=== PATIENT | male | born 1995 | race Caucasian/White ===

== ENCOUNTER → 2017-10-12 | Outpatient (CLI) | payer BC ==
--- NOTE | 2017-10-12 16:37 | Diagnostic Imaging Report ---
PROCEDURE: CT abdomen and pelvis without contrast. TECHNIQUE: Multiple contiguous axial images were obtained through the abdomen and pelvis without the use of intravenous contrast. INDICATION: Abdominal pain. FINDINGS: The lung bases appear clear. The liver, the spleen, the adrenal glands, the pancreas and gallbladder appear unremarkable for unenhanced exam. There is a hypodense lesion seen in the lower pole of the left kidney measuring 0.9 cm in size. This is probably a cyst. There is no hydronephrosis. No kidney stones. There is an indeterminate calcification measuring 9 mm seen in the right side of the pelvis. It is perhaps along one of the vessels suggestive of phlebolith. This does not appear to be a fecalith. The appendix is not clearly identified. No fluid collection is seen in the abdomen or pelvis. No bowel obstruction. The mesenteric lymph nodes are minimally prominent. The abdominal aorta is normal in caliber. No para-aortic significantly enlarged lymph node is seen. Osseous structures demonstrate no significant degenerative changes. IMPRESSION: 1. Indeterminate 9 mm calcification in the right side of the pelvis could be a phlebolith. This does not appears to be a ureteric stone although the right ureter is not clearly identified at this level. No hydronephrosis. 2. The appendix is not clearly identified on this exam. Dictated by: Dictated on workstation # [id number]
== END ==
LOC: RAD 14:46
PROVIDERS: ATTEND Urology
DX: R93.5 Abnormal findings on diagnostic imaging of other abdominal regions, including retroperitoneum (principal); R10.9 Unspecified abdominal pain; N50.819 Testicular pain, unspecified
CPT/HCPCS: 74176

== ENCOUNTER 2017-10-15 14:45 | Emergency (ER) | payer BC ==
[~2017-10-15] VITALS: Ht 172.7 cm; Wt 63.5 kg
--- OUTSIDE RECORDS SUMMARY | 2017-10-15 14:51 | XMS REPORT | Continuity of Care Document ---
Author Author [facility] Address Unknown Phone Unavailable Allergies There is no data. Medications There is no data. Problems Date Dx Coded Attending Type Code Diagnosis Diagnosed By 01/31/2014 VIPIN SINGH MD V03.89 MENINGOCOCCAL DX Procedures There is no data. Results There is no data. Encounters ACCT No. Visit Date/Time Discharge Status Pt. Type Provider Facility Loc./Unit Complaint [id number] 01/31/2014 14:55:00 01/31/2014 23:59:59 [facility] Outpatient VIPIN SINGH MD
--- NOTE | 2017-10-15 15:20 | ED GU-Male ---
General Stated Complaint: STOMACH,TESTICLE PAIN Source: patient Exam Limitations: no limitations History of Present Illness Time seen by provider: 15:17 Initial Comments To ER with lower abdominal and testicular pain. This pain has been present for about a month. It affects both of his testicles but left greater than right. No penile discharge or lesions. He has seen his primary care doctor Cruzito in [place] as well as Dr. Arrington surgeon and Dr. Townsend urology. He has had scrotal ultrasound and CT scan of the abdomen and pelvis without findings. Today the pain is much worse. Timing/Duration: constant Severity/Quality: moderate Location: suprapubic, urethral, scrotal Activities at Onset: none Prior Genitourinary Problems: none Associated Symptoms: denies symptoms Allergies and Home Medications Allergies Coded Allergies: No Known Drug Allergies (Unverified , 10/15/17) Constitutional: see HPI EENTM: see HPI Respiratory: no symptoms reported Cardiovascular: no symptoms reported Genitourinary: no symptoms reported Musculoskeletal: no symptoms reported Skin: no symptoms reported Psychiatric/Neurological: No Symptoms Reported Endocrine: No Symptoms Reported Hematologic/Lymphatic: No Symptoms Reported Past Zybdgmm-Ymulnx-Dyjfop Hx Patient Social History Recent Foreign Travel: No Contact w/Someone Who Travel: No Physical Exam Vital Signs Vital Sign - Last 12Hours 10/15/17 15:22 Temp 98.1 Pulse 87 Resp 20 B/P (MAP) 145/79 (101) Pulse Ox 99 Capillary Refill : General Appearance: WD/WN, no apparent distress HEENT: PERRL/EOMI, normal ENT inspection Neck: non-tender, full range of motion Respiratory: no respiratory distress, no accessory muscle use Gastrointestinal: normal bowel sounds, non tender Extremities: normal range of motion, non-tender Neurologic/Psychiatric: alert, normal mood/affect, oriented x 3 Skin: normal color, warm/dry Progress/Results/Core Measures Suspected Sepsis SIRS Temperature: Pulse: Respiratory Rate: Laboratory Tests 10/15/17 15:17: White Blood Count 8.0 Blood Pressure / Mean: Laboratory Tests 10/15/17 15:17: Creatinine 0.84, Platelet Count 189 Results/Orders Lab Results Laboratory Tests Test 10/15/17 15:17 10/15/17 16:30 Range/Units White Blood Count 8.0 4.3-11.0 10^3/uL Red Blood Count 4.55 4.35-5.85 10^6/uL Hemoglobin 14.9 13.3-17.7 G/DL Hematocrit 43 40-54 % Mean Corpuscular Volume 93 80-99 FL Mean Corpuscular Hemoglobin 33 25-34 PG Mean Corpuscular Hemoglobin Concent 35 32-36 G/DL Red Cell Distribution Width 11.7 10.0-14.5 % Platelet Count 189 130-400 10^3/uL Mean Platelet Volume 10.2 7.4-10.4 FL Neutrophils (%) (Auto) 58 42-75 % Lymphocytes (%) (Auto) 32 12-44 % Monocytes (%) (Auto) 7 0-12 % Eosinophils (%) (Auto) 2 0-10 % Basophils (%) (Auto) 1 0-10 % Neutrophils # (Auto) 4.7 1.8-7.8 X 10^3 Lymphocytes # (Auto) 2.6 1.0-4.0 X 10^3 Monocytes # (Auto) 0.6 0.0-1.0 X 10^3 Eosinophils # (Auto) 0.2 0.0-0.3 10^3/uL Basophils # (Auto) 0.0 0.0-0.1 10^3/uL Sodium Level 140 135-145 MMOL/L Potassium Level 4.0 3.6-5.0 MMOL/L Chloride Level 106 98-107 MMOL/L Carbon Dioxide Level 21 21-32 MMOL/L Anion Gap 13 5-14 MMOL/L Blood Urea Nitrogen 15 7-18 MG/DL Creatinine 0.84 0.60-1.30 MG/DL Estimat Glomerular Filtration Rate > 60 BUN/Creatinine Ratio 18 Glucose Level 91 70-105 MG/DL Calcium Level 9.4 8.5-10.1 MG/DL Urine Color YELLOW Urine Clarity CLEAR Urine pH 7 5-9 Urine Specific [place] 1.010 L 1.016-1.022 Urine Protein 1+ H NEGATIVE Urine Glucose (UA) NEGATIVE NEGATIVE Urine Ketones 3+ H NEGATIVE Urine Nitrite NEGATIVE NEGATIVE Urine Bilirubin NEGATIVE NEGATIVE Urine Urobilinogen NORMAL NORMAL MG/DL Urine Leukocyte Esterase 1+ H NEGATIVE Urine RBC (Auto) 3+ H NEGATIVE Urine RBC 10-25 H /HPF Urine WBC RARE /HPF Urine Squamous Epithelial Cells RARE /HPF Urine Crystals NONE /LPF Urine Bacteria NEGATIVE /HPF Urine Casts NONE /LPF Urine Mucus SMALL H /LPF Urine Culture Indicated NO My Orders Orders - MILAGROS ISSA APRN Saline Lock/Iv-Start (10/15/17 15:07) Ua Culture If Indicated (10/15/17 15:07) Us Scrotum (Testicle) [id number] (10/15/17 15:07) Cbc With Automated Diff (10/15/17 15:07) Basic Metabolic Panel (10/15/17 15:07) Chlamydia Dna (10/15/17 15:15) Neis Chintan Dna Urine Test (10/15/17 15:15) Ketorolac Injection (Toradol Injection) (10/15/17 15:30) Ct Abdomen/Pelvis W (10/15/17 15:28) Iohexol Injection (Omnipaque 350 Mg/Ml 1 (10/15/17 15:45) Ns (Ivpb) (Sodium Chloride 0.9% Ivpb Bag (10/15/17 15:45) Pharmacy Communication (Pharmacy Communi (10/15/17 15:32) Fentanyl Injection (Sublimaze Injection (10/15/17 16:30) Medications Given in ED Current Medications Medications Dose Ordered Sig/Sloane Route Start Time Stop Time Status Last Admin Dose Admin Fentanyl Citrate 50 mcg ONCE ONCE IVP 10/15/17 16:30 10/15/17 16:31 DC 10/15/17 17:14 50 MCG Iohexol 100 ml ONCE ONCE IV 10/15/17 15:45 10/15/17 15:46 DC 10/15/17 15:59 100 ML Ketorolac Tromethamine 30 mg ONCE ONCE IVP 10/15/17 15:30 10/15/17 15:31 DC 10/15/17 15:33 30 MG Sodium Chloride 100 ml ONCE ONCE IV 10/15/17 15:45 10/15/17 15:46 DC 10/15/17 15:59 80 ML Vital Signs/I&O Vital Sign - Last 12Hours 10/15/17 15:22 Temp 98.1 Pulse 87 Resp 20 B/P (MAP) 145/79 (101) Pulse Ox 99 Capillary Refill : Diagnostic Imaging Diagonstic Imaging: Xray Plain Films/CT/US/NM/MRI: elbow Comments NAME: PINA CALIXTO MED REC#: [id number] PT STATUS: REG ER : 1995 PHYSICIAN: MILAGROS ISSA APRN ADMIT DATE: 10/15/17/ER Draft Date of Exam:10/15/17 US SCROTUM (Testicle) [id number] EXAMINATION: Scrotal ultrasound. INDICATION: Bilateral testicular pain. FINDINGS: The right testicle is 4.4 x 2.2 x 3.0 cm. Phe left testicle is 4.5 x 2.2 x 2.9 cm. No solid mass is identified in either testicle. Arterial waveforms are demonstrated in both testicles. There is no hydrocele. There is bilateral varicocele of mild degree with the veins measuring 2-3 mm, more on the left side. IMPRESSION: Bilateral mild varicocele slightly more prominent on the left. Dictated on workstation # [id number] Dict: 10/15/171615 Trans: 10/15/17 1630 [id number] Interpreted by: LEONEL FERGUSON MD Electronically signed by: NAME: PINA CALIXTO [facility] REC#: [id number] PT STATUS: REG ER : 1995 PHYSICIAN: MILAGROS ISSA APRN ADMIT DATE: 10/15/17/ER Signed Date of Exam:10/15/17 CT ABDOMEN/PELVIS W PROCEDURE: CT abdomen and pelvis with contrast. TECHNIQUE: Multiple contiguous axial images were obtained through the abdomen and pelvis after administration of intravenous contrast. INDICATION: Left flank pain. FINDINGS: Lung bases are clear. Liver appears normal. Gallbladder is present. Pancreas is normal. Spleen is not enlarged. Adrenals and kidneys are normal. Renal veins are patent. There are no inguinal hernias. Bowel gas pattern is normal. Colon is normal. Urinary bladder is unremarkable. IMPRESSION: Negative CT abdomen and pelvis. Dictated by: Dictated on workstation # [id number] Dict: 10/15/171610 Trans: 10/15/17 1628 [id number] Interpreted by: EUSEBIO DUNNE MD Electronically signed by: EUSEBIO DUNNE MD 10/15/17 1629 Departure Communication (Admissions) Progress Notes I did discuss with Dr. Townsend. He recommends Bactrim DS antibiotics and he will see the patient tomorrow at 1030 a.m. Impression Impression: Primary Impression: Bilateral varicoceles Disposition: 01 HOME, SELF-CARE Condition: Stable Departure-Patient Inst. Decision time for Depature: 17:36 Referrals: MEAGHAN AMEZQUITA MD (PCP/Family) Primary Care Physician SUE TOWNSEND MD Patient Instructions: Varicocele Add. Discharge Instructions: 1. Follow up with Dr. Townsend. He will see you in the office tomorrow at 1030 a.m. Take the antibiotics as directed in addition to the pain medication. The antibiotics are for a possible diagnosis of epididymitis which is an infectious cause of testicular pain Scripts Hydrocodone/Acetaminophen ([place] 5-325 Tablet) 1 Each Tablet 1 EACH PO Q4H Y for PAIN-MODERATE TO SEVERE, #14 TAB Prov: MILAGROS ISSA APRN 10/15/17 Sulfamethoxazole/Trimethoprim (Bactrim Ds Tablet) 1 Each Tablet 1 EACH PO BID, #14 TAB Prov: MILAGROS ISSA [employer]TER [employer]XOP[employer]ON[employer] 10/15/17 Work/School Note: Work Release Form Date Seen in the Emergency Department: Oct 15, 2017 Return to Work: Oct 17, 2017 Copy Copies To 1: MEAGHAN AMEZQUITA MD; SUE TOWNSEND MD, PETER J MOUNTER SAXOPHONES Oct 15, 2017 15:20
[2017-10-15 15:28] LABS: BASOPHILS % (AUTO) 1 % (0-10); EOSINOPHILS # (AUTO) 0.2 10^3/uL (0.0-0.3); EOSINOPHILS % (AUTO) 2 % (0-10); LYMPHOCYTES # (AUTO) 2.6 X 10^3 (1.0-4.0); LYMPHOCYTES % (AUTO) 32 % (12-44); MEAN CORPUSCULAR HEMOGLOBIN 33 PG (25-34); MEAN CORPUSCULAR HGB CONC 35 G/DL (32-36); MEAN CORPUSCULAR VOLUME 93 FL (80-99); MEAN PLATELET VOLUME 10.2 FL (7.4-10.4); MONOCYTES # (AUTO) 0.6 X 10^3 (0.0-1.0); MONOCYTES % (AUTO) 7 % (0-12); NEUTROPHILS # (AUTO) 4.7 X 10^3 (1.8-7.8); NEUTROPHILS % (AUTO) 58 % (42-75); PLATELET COUNT 189 10^3/uL (130-400); RED BLOOD COUNT 4.55 10^6/uL (4.35-5.85); RED CELL DISTRIBUTION WIDTH 11.7 % (10.0-14.5)
[2017-10-15] MEDS ORDERED: KETOROLAC 30 MG/ML VIAL IVP ONE (15:30)
[2017-10-15] MEDS ORDERED: IOHEXOL 350 MG/ML 100 ML (OMNIPAQUE 350) VIAL IV ONE (15:45)
[2017-10-15] MEDS ORDERED: NS 100 ML (IVPB) BAG IV ONE (15:45)
[2017-10-15 15:52] LABS: ANION GAP 13 MMOL/L (5-14); BLOOD UREA NITROGEN 15 MG/DL (7-18); BUN/CREATININE RATIO 18; CALCIUM 9.4 MG/DL (8.5-10.1); CARBON DIOXIDE 21 MMOL/L (21-32); CHLORIDE 106 MMOL/L (98-107); CREATININE SERUM 0.84 MG/DL (0.60-1.30); GFR ESTIMATED > 60; GLUCOSE 91 MG/DL (70-105); SODIUM 140 MMOL/L (135-145)
--- NOTE | 2017-10-15 16:15 | Diagnostic Imaging Report ---
PROCEDURE: CT abdomen and pelvis with contrast. TECHNIQUE: Multiple contiguous axial images were obtained through the abdomen and pelvis after administration of intravenous contrast. INDICATION: Left flank pain. FINDINGS: Lung bases are clear. Liver appears normal. Gallbladder is present. Pancreas is normal. Spleen is not enlarged. Adrenals and kidneys are normal. Renal veins are patent. There are no inguinal hernias. Bowel gas pattern is normal. Colon is normal. Urinary bladder is unremarkable. IMPRESSION: Negative CT abdomen and pelvis. Dictated by: Dictated on workstation # [id number]
[2017-10-15] MEDS ORDERED: fentaNYL INJECTION 100 MCG/2 ML AMP IVP ONE (16:30)
--- NOTE | 2017-10-15 16:31 | Diagnostic Imaging Report ---
EXAMINATION: Scrotal ultrasound. INDICATION: Bilateral testicular pain. FINDINGS: The right testicle is 4.4 x 2.2 x 3.0 cm. Phe left testicle is 4.5 x 2.2 x 2.9 cm. No solid mass is identified in either testicle. Arterial waveforms are demonstrated in both testicles. There is no hydrocele. There is bilateral varicocele of mild degree with the veins measuring 2-3 mm, more on the left side. IMPRESSION: Bilateral mild varicocele slightly more prominent on the left. Dictated by: Dictated on workstation # [id number]
[2017-10-15 17:16] LABS: BILIRUBIN,URINE NEGATIVE (NEGATIVE); KETONES,URINE 3+ (NEGATIVE); LEUKOCYTE ESTERASE ,URINE 1+ (NEGATIVE); NITRITE,URINE NEGATIVE (NEGATIVE); PH,URINE 7 (5-9); PROTEIN,URINE 1+ (NEGATIVE); UROBILINOGEN,URINE NORMAL (NORMAL)
[2017-10-15 17:31] LABS: SQUAMOUS EPITHELIAL CELL,UR RARE /HPF; WBC,URINE RARE /HPF
[2017-10-15] MEDS ORDERED: HYDR-757 PO (17:38)
[2017-10-15] MEDS ORDERED: SULF1TAB35 PO (17:38)
[2017-10-15 17:46] VITALS: BP 130/72
[2017-10-20 06:46] LABS: NEISSERIA GONORRHEA DNA URINE Not Detected (Not Detected)
[2017-10-21 06:47] LABS: CHLAMYDIA DNA URINE Not Detected (Not Detected)
== END 2017-10-15 17:46 | disposition home or self-care (01) ==
LOC: EDUNIT# 14:45 → ER 14:47
DX: I86.1 Scrotal varices (principal)
CPT/HCPCS: 36415; 74177; 76870; 80048; 81000; 85025; 87088; 87491; 87591

== ENCOUNTER 2020-12-25 13:51 | Emergency (ER) | payer BC ==
[~2020-12-25] VITALS: Ht 172.7 cm; Wt 72.0 kg
[~2020-12-25 13:51] MED LIST: HYDR-4226 PO; SULF1TAB35 PO
--- NOTE | 2020-12-25 14:28 | ED Cough/URI ---
General Chief Complaint: Respiratory Problems Stated Complaint: SOA DIARRHEA Nursing Triage Note: Pt states shortness of breath, left lower abd pain and loose stools for 5 days, worsening today. Sepsis Screen: No Definite Risk Source: patient Exam Limitations: no limitations History of Present Illness Date Seen by Provider: Dec 25, 2020 Time Seen by Provider: 14:49 Initial Comments To ER with c/o SOB, LLQ pain, loose stools x5 days. Timing/Duration: week, getting worse Severity/Quality: dry cough Associated Symptoms: denies symptoms Allergies and Home Medications Allergies Coded Allergies: No Known Drug Allergies (Unverified , 10/15/17) Home Medications Hydrocodone/Acetaminophen 1 Each Tablet, 1 EACH PO Q4H PRN for PAIN-MODERATE TO SEVERE Prescribed by: MILAGROS ISSA on 10/15/17 1738 Sulfamethoxazole/Trimethoprim 1 Each Tablet, 1 EACH PO BID Prescribed by: MILAGROS ISSA on 10/15/17 1738 Patient Home Medication List Home Medication List Reviewed: Yes Review of Systems Review of Systems Constitutional: chills EENTM: see HPI Respiratory: see HPI, cough, short of breath Cardiovascular: no symptoms reported Genitourinary: no symptoms reported Musculoskeletal: no symptoms reported Skin: no symptoms reported Psychiatric/Neurological: No Symptoms Reported Hematologic/Lymphatic: No Symptoms Reported Immunological/Allergic: no symptoms reported Past Wldzvqp-Wuyqus-Hhwtiq Hx Patient Social History Recent Infectious Disease Expo: No Seasonal Allergies Seasonal Allergies: No Past Medical History Surgeries: No Respiratory: No Cardiac: No Neurological: No Genitourinary: No Gastrointestinal: No Musculoskeletal: No Endocrine: No HEENT: No Cancer: No Psychosocial: No Integumentary: No Blood Disorders: No Adverse Reaction/Blood Tranf: No Physical Exam Vital Signs - First Documented 12/25/20 14:14 Temp 36.6 Pulse 103 Resp 32 B/P (MAP) 151/94 (113) Pulse Ox 99 O2 Delivery Room Air Capillary Refill : Greater Than 3 Seconds Height: 5'8.00" Weight: 140lbs. oz. 63.650455zr; 24.00 BMI Method:Stated General Appearance: WD/WN, no apparent distress Eyes: Bilateral Eye Normal Inspection, Bilateral Eye PERRL, Bilateral Eye EOMI HEENT: PERRL/EOMI, normal ENT inspection Respiratory: normal breath sounds, no respiratory distress, no accessory muscle use Gastrointestinal: normal bowel sounds, non tender, soft Extremities: normal range of motion, non-tender Neurologic/Psychiatric: alert, normal mood/affect, oriented x 3 Skin: normal color, warm/dry Progress/Results/Core Measures Suspected Sepsis Recent Fever Within 48 Hours: No Infection Criteria Present: None New/Unexplained Altered Menta: No Sepsis Screen: No Definite Risk SIRS Temperature: Pulse: 103 Respiratory Rate: 32 Laboratory Tests 12/25/20 14:20: White Blood Count 7.7 Blood Pressure 151 /94 Mean: 113 Laboratory Tests 12/25/20 14:20: Creatinine 1.16, Platelet Count 231, Total Bilirubin 0.8 Results/Orders Lab Results Laboratory Tests Test 12/25/20 14:20 Range/Units White Blood Count 7.7 4.3-11.0 10^3/uL Red Blood Count 5.13 4.30-5.52 10^6/uL Hemoglobin 16.1 13.3-17.7 g/dL Hematocrit 45 40-54 % Mean Corpuscular Volume 88 80-99 fL Mean Corpuscular Hemoglobin 31 25-34 pg Mean Corpuscular Hemoglobin Concent 36 32-36 g/dL Red Cell Distribution Width 11.4 10.0-14.5 % Platelet Count 231 130-400 10^3/uL Mean Platelet Volume 10.1 9.0-12.2 fL Immature Granulocyte % (Auto) 0 % Neutrophils (%) (Auto) 54 42-75 % Lymphocytes (%) (Auto) 37 12-44 % Monocytes (%) (Auto) 8 0-12 % Eosinophils (%) (Auto) 1 0-10 % Basophils (%) (Auto) 0 0-10 % Neutrophils # (Auto) 4.2 1.8-7.8 10^3/uL Lymphocytes # (Auto) 2.8 1.0-4.0 10^3/uL Monocytes # (Auto) 0.6 0.0-1.0 10^3/uL Eosinophils # (Auto) 0.1 0.0-0.3 10^3/uL Basophils # (Auto) 0.0 0.0-0.1 10^3/uL Immature Granulocyte # (Auto) 0.0 0.0-0.1 10^3/uL D-Dimer < 0.27 0.00-0.49 UG/ML Sodium Level 138 135-145 MMOL/L Potassium Level 3.9 3.6-5.0 MMOL/L Chloride Level 106 98-107 MMOL/L Carbon Dioxide Level 20 L 21-32 MMOL/L Anion Gap 12 5-14 MMOL/L Blood Urea Nitrogen 11 7-18 MG/DL Creatinine 1.16 0.60-1.30 MG/DL Estimat Glomerular Filtration Rate > 60 BUN/Creatinine Ratio 9 Glucose Level 114 H 70-105 MG/DL Calcium Level 9.7 8.5-10.1 MG/DL Corrected Calcium 8.5-10.1 MG/DL Total Bilirubin 0.8 0.1-1.0 MG/DL Aspartate Amino Transf (AST/SGOT) 22 5-34 U/L Alanine Aminotransferase (ALT/SGPT) 17 0-55 U/L Alkaline Phosphatase 51 40-136 U/L C-Reactive Protein High Sensitivity 0.05 0.00-0.50 MG/DL Total Protein 8.1 6.4-8.2 GM/DL Albumin 5.1 H 3.2-4.5 GM/DL Coronavirus 2019 ([facility]) Positive H Negative Micro Results Microbiology 12/25/20 Influenza Types A,B Antigen ([facility]) - Final, Complete My Orders Orders - MILAGROS ISSA APRN Covid 19 Inhouse Test (12/25/20 14:17) Influenza A And B Antigens (12/25/20 14:17) Chest 1 View, Ap/Pa Only (12/25/20 14:19) Cbc With Automated Diff (12/25/20 14:20) Hs C Reactive Protein (12/25/20 14:20) Comprehensive Metabolic Panel (12/25/20 14:20) Fibrin Degradation Products (12/25/20 14:20) Lactated Ringers (Lr 1000 Ml Iv Solution (12/25/20 14:30) Ketorolac Injection (Toradol Injection) (12/25/20 14:30) Vital Signs/I&O 12/25/20 12/25/20 14:14 15:59 Temp 36.6 36.6 Pulse 103 81 Resp 32 18 B/P (MAP) 151/94 (113) 128/67 (113) Pulse Ox 99 98 O2 Delivery Room Air Capillary Refill : Greater Than 3 Seconds Blood Pressure Mean: 113 Departure Impression Primary Impression: COVID-19 Disposition: 01 HOME, SELF-CARE Condition: Stable Departure-Patient Inst. Decision time for Depature: 14:50 Referrals: MEAGHAN AMEZQUITA MD (PCP/Family) Primary Care Physician Patient Instructions: Coronavirus Disease 2019 (COVID-19) (DC) MILAGROS ISSA APRN Dec 25, 2020 14:28
[2020-12-25] MEDS ORDERED: KETOROLAC 30 MG/ML VIAL IVP ONE (14:30)
[2020-12-25] MEDS ORDERED: LACTATED RINGERS 1,000 ML IV SCH (14:30)
[2020-12-25 14:38] LABS: BASOPHILS % (AUTO) 0 % (0-10); EOSINOPHILS # (AUTO) 0.1 10^3/uL (0.0-0.3); EOSINOPHILS % (AUTO) 1 % (0-10); HEMATOCRIT 45 % (40-54); HEMOGLOBIN 16.1 g/dL (13.3-17.7); LYMPHOCYTES # (AUTO) 2.8 10^3/uL (1.0-4.0); LYMPHOCYTES % (AUTO) 37 % (12-44); MEAN CORPUSCULAR HEMOGLOBIN 31 pg (25-34); MEAN CORPUSCULAR HGB CONC 36 g/dL (32-36); MEAN CORPUSCULAR VOLUME 88 fL (80-99); MEAN PLATELET VOLUME 10.1 fL (9.0-12.2); MONOCYTES # (AUTO) 0.6 10^3/uL (0.0-1.0); MONOCYTES % (AUTO) 8 % (0-12); NEUTROPHILS # (AUTO) 4.2 10^3/uL (1.8-7.8); NEUTROPHILS % (AUTO) 54 % (42-75); PLATELET COUNT 231 10^3/uL (130-400); WHITE BLOOD COUNT 7.7 10^3/uL (4.3-11.0)
--- NOTE | 2020-12-25 14:41 | Diagnostic Imaging Report ---
Indication: Dyspnea COMPARISON: No previous study is available for comparison at this time. FINDINGS: Heart size and pulmonary vasculature are within normal limits, and the lungs are clear, bilaterally. There is probable pectus excavatum. IMPRESSION: Unremarkable chest. Dictated by: Dictated on workstation # [id number]
[2020-12-25 14:43] LABS: ALBUMIN 5.1 GM/DL (3.2-4.5); CHLORIDE 106 MMOL/L (98-107); POTASSIUM 3.9 MMOL/L (3.6-5.0); SODIUM 138 MMOL/L (135-145)
[2020-12-25 14:44] LABS: CALCIUM 9.7 MG/DL (8.5-10.1)
[2020-12-25 14:46] LABS: GLUCOSE 114 MG/DL (70-105); TOTAL PROTEIN 8.1 GM/DL (6.4-8.2)
[2020-12-25 14:47] LABS: BILIRUBIN,TOTAL 0.8 MG/DL (0.1-1.0); CARBON DIOXIDE 20 MMOL/L (21-32)
[2020-12-25 14:49] LABS: ALKALINE PHOSPHATASE 51 U/L (40-136); CREATININE SERUM 1.16 MG/DL (0.60-1.30); GFR ESTIMATED > 60
[2020-12-25 14:51] LABS: BUN/CREATININE RATIO 9
[2020-12-25 14:52] LABS: ALANINE AMINOTRANSFERASE 17 U/L (0-55)
[2020-12-25 15:59] VITALS: BP 128/67
== END 2020-12-25 16:02 | disposition home or self-care (01) ==
LOC: EDUNIT# 13:51 → ER 13:56
DX: U07.1 COVID-19 (principal)
CPT/HCPCS: 71045; 80053; 85025; 85379; 86141; 87804; U0002; 36415; 87635

== ENCOUNTER 2020-12-26 19:43 | Emergency (ER) | payer BC ==
[2020-12-26] MEDS ORDERED: morphine INJ 10 MG/ML 1ML (SYR OR VIAL) IVP STA ×2 (20:08→21:10)
--- NOTE | 2020-12-26 20:14 | ED Abdominal Pain ---
General Stated Complaint: COVID POSITIVE / STOMACH PAIN Source of Information: Patient Exam Limitations: No Limitations History of Present Illness Date Seen by Provider: Dec 26, 2020 Time Seen by Provider: 20:00 Initial Comments Markel is a 25-year-old male who presents to the emergency room by POV this evening with a chief complaint of left flank pain. Patient states pain started suddenly approximately 45 minutes prior to arrival. He was riding in a car at the onset of pain. States that the pain is sharp and stabbing. He states that he had similar pain about 2 days ago but it was not quite as severe. Patient states that he had a little bit of urinary hesitancy. He has been recently treated over the past 2 weeks for prostatitis but he cannot recall the name of the antibiotic he is on. He has suffered with left testicular pain for about a year with no etiology. He states he is having some testicular pain this evening. Last bowel movement was this morning and normal per him. No recent fevers or chills. He was incidentally diagnosed with Covid yesterday at this facility. No productive cough. No vomiting since the onset of this pain. No burning with urination. No black or bloody stools. All other review of systems reviewed and negative except as stated. Timing/Duration: 1 Hour Severity/Quality: Severe, Sharp, Stabbing Location: LLQ, Flank (Left flank) Radiation: Back, Groin Activities at Onset: None Associated Symptoms: Back Pain (Left flank) Allergies and Home Medications Allergies Coded Allergies: No Known Drug Allergies (Unverified , 10/15/17) Home Medications Hydrocodone/Acetaminophen 1 Each Tablet, 1 EACH PO Q4H PRN for PAIN-MODERATE TO SEVERE Prescribed by: MILAGROS ISSA on 10/15/17 1738 Sulfamethoxazole/Trimethoprim 1 Each Tablet, 1 EACH PO BID Prescribed by: MILAGROS ISSA on 10/15/17 1738 Patient Home Medication List Home Medication List Reviewed: Yes Review of Systems Review of Systems Constitutional: see HPI EENTM: No Symptoms Reported Respiratory: No Symptoms Reported Cardiovascular: No Symptoms Reported Gastrointestinal: Abdominal Pain Genitourinary: Other (Urinary hesitancy) Musculoskeletal: other (Flank pain back pain) Skin: no symptoms reported Psychiatric/Neurological: Anxiety All Other Systems Reviewed Negative Unless Noted: Yes Past Yhckjmh-Tudasb-Wqgptr Hx Seasonal Allergies Seasonal Allergies: No Past Medical History Surgeries: No Respiratory: No Cardiac: No Neurological: No Genitourinary: No Gastrointestinal: No Musculoskeletal: No Endocrine: No HEENT: No Cancer: No Psychosocial: No Integumentary: No Blood Disorders: No Adverse Reaction/Blood Tranf: No Physical Exam Vital Signs Vital Signs - First Documented 12/26/20 20:00 Temp 36.9 Pulse 130 Resp 30 B/P (MAP) 158/101 (120) Pulse Ox 100 O2 Delivery Room Air Capillary Refill : Height/Weight/BMI Height: 5'8.00" Weight: 140lbs. oz. [id number]; 24.00 BMI Method:Stated General Appearance: WD/WN, moderate distress HEENT: normal ENT inspection Neck: full range of motion Respiratory: lungs clear, normal breath sounds, no respiratory distress Cardiovascular: regular rate, rhythm, tachycardia Gastrointestinal: soft, tenderness (Mild tenderness in the left flank and left lower quadrant without rebound or guarding) Extremities: non-tender, normal inspection, normal capillary refill Back: normal inspection, CVA tenderness (L) Male: normal genitalia; No inguinal tenderness; testicular tenderness (Very minimal left-sided testicular tenderness, no swelling no high riding testicle) Neurologic/Psychiatric: alert, normal mood/affect, oriented x 3 Skin: normal color, warm/dry Progress/Results/Core Measures Results/Orders Lab Results Laboratory Tests Test 12/26/20 20:11 12/26/20 20:50 Range/Units White Blood Count 10.0 4.3-11.0 10^3/uL Red Blood Count 4.90 4.30-5.52 10^6/uL Hemoglobin 15.3 13.3-17.7 g/dL Hematocrit 44 40-54 % Mean Corpuscular Volume 89 80-99 fL Mean Corpuscular Hemoglobin 31 25-34 pg Mean Corpuscular Hemoglobin Concent 35 32-36 g/dL Red Cell Distribution Width 11.7 10.0-14.5 % Platelet Count 213 130-400 10^3/uL Mean Platelet Volume 10.2 9.0-12.2 fL Immature Granulocyte % (Auto) 0 % Neutrophils (%) (Auto) 40 L 42-75 % Lymphocytes (%) (Auto) 51 H 12-44 % Monocytes (%) (Auto) 7 0-12 % Eosinophils (%) (Auto) 2 0-10 % Basophils (%) (Auto) 0 0-10 % Neutrophils # (Auto) 4.0 1.8-7.8 10^3/uL Lymphocytes # (Auto) 5.1 H 1.0-4.0 10^3/uL Monocytes # (Auto) 0.7 0.0-1.0 10^3/uL Eosinophils # (Auto) 0.2 0.0-0.3 10^3/uL Basophils # (Auto) 0.0 0.0-0.1 10^3/uL Immature Granulocyte # (Auto) 0.0 0.0-0.1 10^3/uL Sodium Level 140 135-145 MMOL/L Potassium Level 3.6 3.6-5.0 MMOL/L Chloride Level 108 H 98-107 MMOL/L Carbon Dioxide Level 17 L 21-32 MMOL/L Anion Gap 15 H 5-14 MMOL/L Blood Urea Nitrogen 10 7-18 MG/DL Creatinine 1.01 0.60-1.30 MG/DL Estimat Glomerular Filtration Rate > 60 BUN/Creatinine Ratio 10 Glucose Level 113 H 70-105 MG/DL Calcium Level 9.1 8.5-10.1 MG/DL Urine Color YELLOW Urine Clarity CLEAR Urine pH 6.5 5-9 Urine Specific [place] 1.015 L 1.016-1.022 Urine Protein NEGATIVE NEGATIVE Urine Glucose (UA) NEGATIVE NEGATIVE Urine Ketones NEGATIVE NEGATIVE Urine Nitrite NEGATIVE NEGATIVE Urine Bilirubin NEGATIVE NEGATIVE Urine Urobilinogen 0.2 < = 1.0 MG/DL Urine Leukocyte Esterase NEGATIVE NEGATIVE Urine RBC (Auto) NEGATIVE NEGATIVE Urine RBC RARE /HPF Urine WBC RARE /HPF Urine Crystals NONE /LPF Urine Bacteria NEGATIVE /HPF Urine Casts NONE /LPF Urine Mucus NEGATIVE /LPF Urine Culture Indicated NO My Orders Orders - SAVITA CABRAL MD Ed Iv/Invasive Line Start (12/26/20 20:08) Cbc With Automated Diff (12/26/20 20:08) Basic Metabolic Panel (12/26/20 20:08) Abdomen/Kub 1view (12/26/20 20:08) Ketorolac Injection (Toradol Injection) (12/26/20 20:15) Ns Iv 1000 Ml (Sodium Chloride 0.9%) (12/26/20 20:15) Ondansetron Injection (Zofran Injectio (12/26/20 20:15) Morphine Injection (Morphine Injection (12/26/20 20:08) Ua Culture If Indicated (12/26/20 20:45) Ct Abd/Pelvis Wo(Kidney Stone) (12/26/20 20:47) Morphine Injection (Morphine Injection (12/26/20 21:15) Morphine Injection (Morphine Injection (12/26/20 21:10) Glycopyrrolate Injection (Robinul Inject (12/26/20 21:15) Medications Given in ED Current Medications Medications Dose Ordered Sig/[place] Route Start Time Stop Time Status Last Admin Dose Admin Glycopyrrolate 0.2 mg ONCE ONCE IV 12/26/20 21:15 12/26/20 21:17 DC 12/26/20 21:39 0.2 MG Ketorolac Tromethamine 30 mg ONCE ONCE IVP 12/26/20 20:15 12/26/20 20:16 DC 12/26/20 20:15 30 MG Ondansetron HCl 4 mg ONCE ONCE IVP 12/26/20 20:15 12/26/20 20:16 DC 12/26/20 20:14 4 MG Vital Signs/I&O 12/26/20 20:00 Temp 36.9 Pulse 130 Resp 30 B/P (MAP) 158/101 (120) Pulse Ox 100 O2 Delivery Room Air Progress Progress Note : Time: 21:12 Progress Note Patient had good relief with Toradol and morphine at presentation however when he was coming back from [place] his pain recurred. Patient is given 4 mg of morphine at this time. 2224 Patient reevaluated states his pain is continued to improve he rates it at "5" right now. Exam remains benign. Patient is resting much more comfortably now than he was at presentation. I have reviewed return precautions with the colin leos. I have advised that he return to the emergency room in 24 hours if he still has severe abdominal pain if he develops fever or has vomiting or any other emergent concerns. He verbalizes understanding and is agreeable with the plan of care. All questions have been sought and answered. Patient is also encouraged to follow-up with his primary care physician, Dr. Amezquita. Patient is quite concerned with his persistent testicular pain for the last 2 years. I have advised that he follow-up on this with her. Again all questions are sought and answered patient is stable for discharge. Diagnostic Imaging Diagonstic Imaging: CT Plain Films/CT/US/NM/MRI: abdomen Comments [facility], [place] NAME: MARKEL CALIXTO [facility] REC#: [id number] PT STATUS: REG ER : 1995 PHYSICIAN: SAVITA CABRAL MD ADMIT DATE: 12/26/20/ER Draft Date of Exam:12/26/20 CT ABD/PELVIS WO(KIDNEY STONE) PROCEDURE: CT urinary tract, rule out kidney stone. TECHNIQUE: Multiple contiguous axial images were obtained through the abdomen and pelvis without the use of intravenous contrast. Auto Exposure Controls were utilized during the CT exam to meet ALARA standards for radiation dose reduction. INDICATION: Left flank pain. COVID positive. COMPARISON: 10/15/2017 FINDINGS: Lung bases are clear. The heart is normal in size. The liver demonstrates no focal lesions. The spleen appears normal. The pancreas is normal. The adrenal glands appear normal. There is no hydronephrosis bilaterally. No obstructing calculi are seen in the kidneys or ureters bilaterally. There is a stable calcification in the right pelvis which is unchanged since the prior exam. The bowel loops are nondistended without obstruction. The appendix is normal. No free fluid or free air is seen. No acute osseous abnormality is identified. IMPRESSION: 1. No hydronephrosis or obstructing renal calculi. No acute abnormality is seen in the abdomen or pelvis. Dictated on workstation # [id number] Dict: 12/26/202113 Trans: 12/26/202118 CV [id number] Interpreted by: LUIS M RICHTER MD Electronically signed by: Departure Impression Primary Impression: Abdominal pain Qualified Codes: R10.32 - Left lower quadrant pain Disposition: 01 HOME, SELF-CARE Condition: Stable Departure-Patient Inst. Decision time for Depature: 22:26 Referrals: MEAGHAN AMEZQUITA MD (PCP/Family) Primary Care Physician Patient Instructions: Abdominal Pain, Adult ED Add. Discharge Instructions: Drink plenty of fluids to stay well-hydrated. Take the pain medications / naproxen (alleve) twice a day with food. If your pain is persisting after 24 hours please come back to the emergency department for reevaluation and reexamination. Follow a clear liquid diet for 24 hours and then advance your diet as tolerated after this. If you develop fever, worsening pain, vomiting, black or bloody stools or any other emergent concerning symptoms please come back sooner to the emergency room for reevaluation. SAVITA CABRAL MD Dec 26, 2020 20:14
[2020-12-26] MEDS ORDERED: NS IV 1000 ML 1,000 ML IV SCH (20:15)
[2020-12-26] MEDS ORDERED: ONDANSETRON 4 MG/2 ML (SDV) Z0FRAN IVP ONE (20:15)
[2020-12-26] MEDS ORDERED: KETOROLAC 30 MG/ML VIAL IVP ONE (20:15)
[2020-12-26 20:26] LABS: BASOPHILS % (AUTO) 0 % (0-10); EOSINOPHILS # (AUTO) 0.2 10^3/uL (0.0-0.3); EOSINOPHILS % (AUTO) 2 % (0-10); HEMATOCRIT 44 % (40-54); HEMOGLOBIN 15.3 g/dL (13.3-17.7); LYMPHOCYTES # (AUTO) 5.1 10^3/uL (1.0-4.0); LYMPHOCYTES % (AUTO) 51 % (12-44); MEAN CORPUSCULAR HEMOGLOBIN 31 pg (25-34); MEAN CORPUSCULAR HGB CONC 35 g/dL (32-36); MEAN CORPUSCULAR VOLUME 89 fL (80-99); MEAN PLATELET VOLUME 10.2 fL (9.0-12.2); MONOCYTES # (AUTO) 0.7 10^3/uL (0.0-1.0); MONOCYTES % (AUTO) 7 % (0-12); NEUTROPHILS % (AUTO) 40 % (42-75); PLATELET COUNT 213 10^3/uL (130-400)
[2020-12-26 20:42] LABS: BUN/CREATININE RATIO 10; CALCIUM 9.1 MG/DL (8.5-10.1); CARBON DIOXIDE 17 MMOL/L (21-32); CHLORIDE 108 MMOL/L (98-107); CREATININE SERUM 1.01 MG/DL (0.60-1.30); GFR ESTIMATED > 60; GLUCOSE 113 MG/DL (70-105); POTASSIUM 3.6 MMOL/L (3.6-5.0); SODIUM 140 MMOL/L (135-145)
--- NOTE | 2020-12-26 20:56 | Diagnostic Imaging Report ---
HISTORY: COVID positive, left flank pain. COMPARISON: CT from 10/15/2017 FINDINGS: Frontal view of the abdomen demonstrates no distended loops of bowel. There is no large collection of free air. The upper abdomen is not included. A calcification is noted in the right pelvis which appears stable since 2017. No new calcifications are identified radiographically in the region of the kidneys or the course of the ureters. IMPRESSION: 1. No bowel obstruction or large collection of free air. Dictated by: Dictated on workstation # [id number]
[2020-12-26 20:59] LABS: BILIRUBIN,URINE NEGATIVE (NEGATIVE); CLARITY,URINE CLEAR; COLOR,URINE YELLOW; GLUCOSE, URINE (UA) NEGATIVE (NEGATIVE); KETONES,URINE NEGATIVE (NEGATIVE); LEUKOCYTE ESTERASE ,URINE NEGATIVE (NEGATIVE); NITRITE,URINE NEGATIVE (NEGATIVE); PH,URINE 6.5 (5-9); PROTEIN,URINE NEGATIVE (NEGATIVE)
[2020-12-26] MEDS ORDERED: morphine INJ 4 MG/ML 1 ML (VIAL/SYRINGE) IVP ONE (21:15)
[2020-12-26] MEDS ORDERED: GLYCOPYRROLATE 0.2 MG/ML (ROBINUL) 2 ML VIAL IV ONE (21:15)
--- NOTE | 2020-12-26 21:19 | Diagnostic Imaging Report ---
PROCEDURE: CT urinary tract, rule out kidney stone. TECHNIQUE: Multiple contiguous axial images were obtained through the abdomen and pelvis without the use of intravenous contrast. Auto Exposure Controls were utilized during the CT exam to meet ALARA standards for radiation dose reduction. INDICATION: Left flank pain. COVID positive. COMPARISON: 10/15/2017 FINDINGS: Lung bases are clear. The heart is normal in size. The liver demonstrates no focal lesions. The spleen appears normal. The pancreas is normal. The adrenal glands appear normal. There is no hydronephrosis bilaterally. No obstructing calculi are seen in the kidneys or ureters bilaterally. There is a stable calcification in the right pelvis which is unchanged since the prior exam. The bowel loops are nondistended without obstruction. The appendix is normal. No free fluid or free air is seen. No acute osseous abnormality is identified. IMPRESSION: 1. No hydronephrosis or obstructing renal calculi. No acute abnormality is seen in the abdomen or pelvis. Dictated by: Dictated on workstation # [id number]
[2020-12-26 21:23] LABS: BACTERIA,URINE NEGATIVE /HPF; RBC,URINE RARE /HPF; WBC,URINE RARE /HPF
[2020-12-26 22:35] VITALS: BP 127/75
== END 2020-12-26 22:35 | disposition home or self-care (01) ==
LOC: EDUNIT# 19:43 → ER 19:45
DX: R10.32 Left lower quadrant pain (principal); F41.9 Anxiety disorder, unspecified
CPT/HCPCS: 36415; 74018; 74176; 80048; 81000; 85025